=== PATIENT | female | born 1970 | race Caucasian/White ===

== ENCOUNTER 2017-01-10 18:33 | Emergency (ER) | payer MEDICAID ==
[~2017-01-10] VITALS: Ht 160 cm; Wt 75.0 kg
[2017-01-10 18:34] VITALS: BP 154/87; PULSE 108; RESP 14; TEMP 98; O2SAT 99
--- NOTE | 2017-01-10 18:48 | PD ---
HPI Chief Complaint: Psychiatric Symptoms Time Seen by Provider: 18:40 Travel History International Travel<30 days: No Contact w/Intl Traveler<30days: No Traveled to known affect area: No History of Present Illness HPI 46-year-old female presents to emergency Department voluntarily for suicidal ideations. Has history of bipolar and PTSD and takes lithium and BuSpar as prescribed and has been compliant. Just saw her psychiatrist on Thursday at [facility] in [place] and discussed her thoughts with her psychiatrist and nothing was addressed. Does not have a plan to commit suicide. Says things would be easier of she were not here. Denies history of thoughts of suicide or suicidal attempt. Reports feeling overwhelmed and anxious. Denies alcohol use. Denies illicit drug use. Reports tobacco use. Denies auditory or visual hallucinations. Denies homicidal ideations. Has no current emergent medical complaints. Denies chest pain, shortness of breath, abdominal pain, dysuria, change in stool. No known relieving or aggravating factors. Allergies to acetaminophen. History of asthma and Hep C. Has IUD. Has no other medical complaints. No other modifying factors or associated signs and symptoms. PFSH Past Medical History Asthma: Yes Social History Tobacco Use: Yes Allergies-Medications (Allergen,Severity, Reaction): Coded Allergies: acetaminophen (Verified Allergy, Unknown, 01/10/17) Reported Meds & Prescriptions Reported Meds & Active Scripts Active Reported Gila Carbonate 600 Mg Cap 600 Mg PO HS Buspirone (Buspirone HCl) 15 Mg Tab 15 Mg PO BID Review of Systems Except as stated in HPI: all other systems reviewed are Neg Physical Exam Narrative GENERAL: Well-nourished, well-developed female patient, in no acute distress SKIN: Warm and dry. HEAD: Atraumatic. Normocephalic. EYES: Pupils equal and round. ENT: Mucosa pink and moist. NECK: Supple. Trachea midline. CARDIOVASCULAR: Regular rate and rhythm. No murmur appreciated. RESPIRATORY: No accessory muscle use. Clear to auscultation. Breath sounds equal bilaterally. GASTROINTESTINAL: Abdomen soft, non-tender, nondistended. Hepatic and splenic margins not palpable. Bowel sounds are active 4 quadrants. MUSCULOSKELETAL: No obvious deformities. No clubbing. No cyanosis. No edema. BACK: No CVA tenderness. NEUROLOGICAL: Awake and alert. Oriented 3. No obvious cranial nerve deficits. Motor grossly within normal limits. Normal speech. Moves all extremities. 5/5 strength to all extremities. PSYCHIATRIC: No delusional thought processes. No hallucinations. Data Data Last Documented VS Vital Signs Date Time Temp Pulse Resp B/P (MAP) Pulse Ox O2 Delivery O2 Flow Rate FiO2 01/10/17 19:31 85 17 141/91 (108) 100 Room Air 01/10/17 18:34 98.0 Orders Orders Complete Blood Count With Diff (01/10/17 18:41) Comprehensive Metabolic Panel (01/10/17 18:41) Urinalysis - C+S If Indicated (01/10/17 18:41) Psych Screen (01/10/17 18:41) Drug Screen, Random Urine (01/10/17 18:41) Alcohol (Ethanol) (01/10/17 18:41) Salicylates (Aspirin) (01/10/17 18:41) Tylenol (Acetaminophen) (01/10/17 18:41) Ed Urine Pregnancytest Poc (01/10/17 18:48) Gila (Li) (01/10/17 18:52) Labs Laboratory Tests Test 01/10/17 19:00 01/10/17 19:50 White Blood Count 9.1 TH/MM3 Red Blood Count 4.42 MIL/MM3 Hemoglobin 14.4 GM/DL Hematocrit 42.6 % Mean Corpuscular Volume 96.3 FL Mean Corpuscular Hemoglobin 32.6 PG Mean Corpuscular Hemoglobin Concent 33.8 % Red Cell Distribution Width 13.8 % Platelet Count 180 TH/MM3 Mean Platelet Volume 9.8 FL Neutrophils (%) (Auto) 62.9 % Lymphocytes (%) (Auto) 27.2 % Monocytes (%) (Auto) 8.0 % Eosinophils (%) (Auto) 1.1 % Basophils (%) (Auto) 0.8 % Neutrophils # (Auto) 5.7 TH/MM3 Lymphocytes # (Auto) 2.5 TH/MM3 Monocytes # (Auto) 0.7 TH/MM3 Eosinophils # (Auto) 0.1 TH/MM3 Basophils # (Auto) 0.1 TH/MM3 CBC Comment DIFF FINAL Differential Comment Urine Color LIGHT-YELLOW Urine Turbidity CLEAR Urine pH 6.5 Urine Specific [place] 1.009 Urine Protein NEG mg/dL Urine Glucose (UA) NEG mg/dL Urine Ketones NEG mg/dL Urine Occult Blood SMALL Urine Nitrite NEG Urine Bilirubin NEG Urine Urobilinogen LESS THAN 2.0 MG/DL Urine Leukocyte Esterase SMALL Urine RBC 1 /hpf Urine WBC 1 /hpf Microscopic Urinalysis Comment CULT NOT INDICATED Blood Urea Nitrogen 11 MG/DL Creatinine 1.01 MG/DL Random Glucose 119 MG/DL Total Protein 8.1 GM/DL Albumin 3.7 GM/DL Calcium Level 9.0 MG/DL Alkaline Phosphatase 171 U/L Aspartate Amino Transf (AST/SGOT) 179 U/L Alanine Aminotransferase (ALT/SGPT) 347 U/L Total Bilirubin 0.4 MG/DL Sodium Level 141 MEQ/L Potassium Level 3.6 MEQ/L Chloride Level 108 MEQ/L Carbon Dioxide Level 25.1 MEQ/L Anion Gap 8 MEQ/L Estimat Glomerular Filtration Rate 60 ML/MIN Salicylates Level 1.9 MG/DL Acetaminophen Level LESS THAN 2.0 MCG/ML Ethyl Alcohol Level LESS THAN 3 MG/DL MDM Medical Decision Making Medical Screen Exam Complete: Yes Emergency Medical Condition: Yes Medical Record Reviewed: Yes Differential Diagnosis Depression, anxiety, suicidal ideation, medical clearance for psychiatric admission Narrative Course Patient presents voluntarily. Physical examination and vital signs are essentially unremarkable. Patient has no medical complaints to report. Psych screen has been ordered. If the laboratory results are unremarkable, the patient will be medically cleared for psychiatric evaluation and disposition. Diagnosis Primary Impression: Medical clearance for psychiatric admission Condition: Stable Leola Guidry Jan 10, 2017 18:48
[2017-01-10 19:31] VITALS: BP 141/91; PULSE 85; RESP 17; O2SAT 100
[2017-01-10 19:35] LABS: AUTOMATED NEUTROPHIL # 5.7 TH/MM3 (1.8-7.7); BASOPHIL # 0.1 TH/MM3 (0-0.2); BASOPHIL % 0.8 % (0.0-2.0); EOSINOPHIL # 0.1 TH/MM3 (0-0.4); EOSINOPHIL % 1.1 % (0.0-4.0); HEMATOCRIT 42.6 % (35.0-46.0); HEMO FLAGS DIFF FINAL; LYMPH % 27.2 % (9.0-44.0); LYMPHOCYTE # 2.5 TH/MM3 (1.0-4.8); MEAN CELL VOLUME 96.3 FL (80.0-100.0); MEAN CORPUSCULAR HEMOGLOBIN 32.6 PG (27.0-34.0); MEAN CORPUSCULAR HGB CONC 33.8 % (32.0-36.0); NEUT % 62.9 % (16.0-70.0); PLATELET COUNT 180 TH/MM3 (150-450); RED BLOOD COUNT 4.42 MIL/MM3 (4.00-5.30); RED CELL DISTRIBUTION WIDTH 13.8 % (11.6-17.2); WHITE BLOOD COUNT 9.1 TH/MM3 (4.0-11.0)
[2017-01-10] MEDS ORDERED: BUSP15TA PO (19:35)
[2017-01-10] MEDS ORDERED: LITH600C PO (19:35)
[2017-01-10 19:36] LABS: BLOOD, URINE SMALL (NEG); GLUCOSE,URINE NEG (NEG); KETONE, URINE NEG (NEG); NITRITE,URINE NEG (NEG); PH, URINE 6.5 (5.0-8.5); URINE COLOR LIGHT-YELLOW (YELLW/STRAW)
[2017-01-10 19:42] LABS: COMMENT (UR) CULT NOT INDICATED; CULTURE IF INDICATED CULT NOT INDICATED
[2017-01-10 19:50] LABS: ALT (GPT) 347 U/L (10-53)
[2017-01-10 19:53] LABS: ALKALINE PHOSPHATASE 171 U/L (45-117); TOTAL BILIRUBIN ADULT 0.4 MG/DL (0.2-1.0)
[2017-01-10 19:55] LABS: ANION GAP 8 MEQ/L (5-15); AST (GOT) 179 U/L (15-37); BICARBONATE 25.1 MEQ/L (21.0-32.0); BLOOD UREA NITROGEN 11 MG/DL (7-18); CHLORIDE 108 MEQ/L (98-107); GLOMERULAR FILTRATION RATE 60 ML/MIN (>89); SODIUM (NA) 141 MEQ/L (136-145)
[2017-01-10 19:56] LABS: ACETAMINOPHEN LESS THAN 2.0 MCG/ML (10.0-30.0); ALCOHOL LESS THAN 3 MG/DL (0-5); POTASSIUM 3.6 MEQ/L (3.5-5.1)
[2017-01-11 06:59] VITALS: BP 99/48; PULSE 65; RESP 16; TEMP 98.9; O2SAT 98
--- NOTE | 2017-01-11 09:54 | PD ---
Physical Exam Date Seen by Provider: Jan 11, 2017 Time Seen by Provider: 09:57 Narrative 46-year-old female patient was cleared medically and psychiatrically from our facility. I was asked to disposition the patient. The patient denies any physiological complaints at this time. The patient denies any homicidal or suicidal ideation. Data Data Last Documented VS Vital Signs Date Time Temp Pulse Resp B/P (MAP) Pulse Ox O2 Delivery O2 Flow Rate FiO2 01/11/17 06:59 98.9 65 16 99/48 (65) 98 01/10/17 19:31 Room Air Orders Orders Complete Blood Count With Diff (01/10/17 18:41) Comprehensive Metabolic Panel (01/10/17 18:41) Urinalysis - C+S If Indicated (01/10/17 18:41) Psych Screen (01/10/17 18:41) Drug Screen, Random Urine (01/10/17 18:41) Alcohol (Ethanol) (01/10/17 18:41) Salicylates (Aspirin) (01/10/17 18:41) Tylenol (Acetaminophen) (01/10/17 18:41) Ed Urine Pregnancytest Poc (01/10/17 18:48) Plummer (Li) (01/10/17 18:52) Diet Regular Basic (01/11/17 Breakfast) Ed Discharge Order (01/11/17 09:54) Labs Laboratory Tests Test 01/10/17 19:00 01/10/17 19:50 White Blood Count 9.1 TH/MM3 Red Blood Count 4.42 MIL/MM3 Hemoglobin 14.4 GM/DL Hematocrit 42.6 % Mean Corpuscular Volume 96.3 FL Mean Corpuscular Hemoglobin 32.6 PG Mean Corpuscular Hemoglobin Concent 33.8 % Red Cell Distribution Width 13.8 % Platelet Count 180 TH/MM3 Mean Platelet Volume 9.8 FL Neutrophils (%) (Auto) 62.9 % Lymphocytes (%) (Auto) 27.2 % Monocytes (%) (Auto) 8.0 % Eosinophils (%) (Auto) 1.1 % Basophils (%) (Auto) 0.8 % Neutrophils # (Auto) 5.7 TH/MM3 Lymphocytes # (Auto) 2.5 TH/MM3 Monocytes # (Auto) 0.7 TH/MM3 Eosinophils # (Auto) 0.1 TH/MM3 Basophils # (Auto) 0.1 TH/MM3 CBC Comment DIFF FINAL Differential Comment Urine Color LIGHT-YELLOW Urine Turbidity CLEAR Urine pH 6.5 Urine Specific [place] 1.009 Urine Protein NEG mg/dL Urine Glucose (UA) NEG mg/dL Urine Ketones NEG mg/dL Urine Occult Blood SMALL Urine Nitrite NEG Urine Bilirubin NEG Urine Urobilinogen LESS THAN 2.0 MG/DL Urine Leukocyte Esterase SMALL Urine RBC 1 /hpf Urine WBC 1 /hpf Microscopic Urinalysis Comment CULT NOT INDICATED Blood Urea Nitrogen 11 MG/DL Creatinine 1.01 MG/DL Random Glucose 119 MG/DL Total Protein 8.1 GM/DL Albumin 3.7 GM/DL Calcium Level 9.0 MG/DL Alkaline Phosphatase 171 U/L Aspartate Amino Transf (AST/SGOT) 179 U/L Alanine Aminotransferase (ALT/SGPT) 347 U/L Total Bilirubin 0.4 MG/DL Sodium Level 141 MEQ/L Potassium Level 3.6 MEQ/L Chloride Level 108 MEQ/L Carbon Dioxide Level 25.1 MEQ/L Anion Gap 8 MEQ/L Estimat Glomerular Filtration Rate 60 ML/MIN Salicylates Level 1.9 MG/DL Urine Opiates Screen NEG Acetaminophen Level LESS THAN 2.0 MCG/ML Urine Barbiturates Screen NEG Urine Amphetamines Screen NEG Urine Benzodiazepines Screen NEG Urine Cocaine Screen NEG Urine Cannabinoids Screen NEG Ethyl Alcohol Level LESS THAN 3 MG/DL Plummer Level 0.4 MEQ/L MDM Supervised Visit with CHAN: Yes Differential Diagnosis Depression versus suicidal ideation versus anxiety versus adjustment disorder versus mood disorder versus bipolar disorder versus schizophrenia versus paranoid disorder versus psychosis versus substance abuse versus alcohol abuse versus alcohol induced psychosis versus homicidality addition versus cutting versus personality disorder Narrative Course 46-year-old patient cleared medically and psychiatrically from her facility. Patient denies any homicidal suicidal ideations. Patient will be discharged home with instructions to follow-up with [facility] or return to the emergency Department with any worsening condition. Diagnosis Primary Impression: Medical clearance for psychiatric admission Referrals: [facility] (Out patient) Patient Instructions: General Instructions, Medical Clearance for Psychiatric Care (ED) Additional Instruction: Please return to emergency department if your symptoms return or worsen. Follow up with Shalom Ferrell/michael. Disposition: 01 DISCHARGE HOME Condition: Stable Sandy Lord LIZZY Jan 11, 2017 09:54
== END 2017-01-11 10:04 | disposition home or self-care (01) ==
LOC: NEPD 18:33 → NEPJ 01-11 10:04
DX: F31.9 Bipolar disorder, unspecified (principal); F43.10 Post-traumatic stress disorder, unspecified; J45.909 Unspecified asthma, uncomplicated
CPT/HCPCS: 80053; 80178; 80307; 81001; 84703; 85025; 99284